=== PATIENT | female | born 1960 | race Caucasian/White ===

== ENCOUNTER 2016-09-13 18:09 | Emergency (ER) | payer MEDICAID ==
[~2016-09-13] VITALS: Ht 162.6 cm; Wt 99.3 kg
[~2016-09-13 18:09] MED LIST: CRESTOR10 MG PO; CYCLOBENZAPRINE5 MG PO; EFFEXOR XR150 MG PO; EFFEXOR XR75 MG PO; GLUCOPHAGE1000 MG PO; HALFPRIN81 MG PO; HUMALOG100 UNIT/1 SUBCUT; MOBIC15 MG PO; PRINIVIL20 MG PO; PROPRANOLOL HC160 MG PO; PROTONIX40 MG PO; TOUJEO SOL300 UNIT/1 SUBCUT
[2016-09-13] MEDS ORDERED: LIPITOR40 MG PO (18:22)
== END 2016-09-13 19:45 | disposition short-term general hospital (02) ==
LOC: ER 18:09
DX: R10.9 Unspecified abdominal pain (principal); F32.9 Major depressive disorder, single episode, unspecified; K21.9 Gastro-esophageal reflux disease without esophagitis; E78.00 Pure hypercholesterolemia, unspecified; I10 Essential (primary) hypertension; E11.9 Type 2 diabetes mellitus without complications; Z88.1 Allergy status to other antibiotic agents; Z88.0 Allergy status to penicillin; Z88.5 Allergy status to narcotic agent; Z91.048 Other nonmedicinal substance allergy status; Z79.82 Long term (current) use of aspirin; Z79.4 Long term (current) use of insulin; Z79.899 Other long term (current) drug therapy; Z90.49 Acquired absence of other specified parts of digestive tract; Z98.890 Other specified postprocedural states; Z90.89 Acquired absence of other organs; Z87.891 Personal history of nicotine dependence